=== PATIENT | male | born 1960 | race Caucasian/White ===

== ENCOUNTER 2017-10-19 02:37 | Emergency (ER) | payer MEDICARE, OTHER ==
[2017-10-19] MEDS ORDERED: Lidocaine Viscous Sol 2% 15 ml UD Cup ONE (04:07)
[2017-10-19] MEDS ORDERED: Pantoprazole 40 MG VIAL ONE (04:07)
[2017-10-19] MEDS ORDERED: Mag-Al 1200 mg/1200 mg/30 ML UDCUP ONE (04:07)
[2017-10-19 04:14] LABS: #Basophils 0.1 thou/uL (0.0-0.2); #Eosinphils 0.8 thou/uL (0.0-0.7); #Monocytes 0.8 thou/uL (0.11-0.59); #Neutrophils 5.8 thou/uL (1.40-6.50); %Basophils 0.5 % (0.0-1.0); %Eosinophils 8.1 % (0.0-10.0); %Lymphocytes 28.7 % (21.0-51.0); %Monocytes 7.3 % (0.0-10.0); %Neutrophils 55.3 % (42.0-75.0); Hemoglobin 14.8 g/dL (14.0-18.0); Mean Corpuscular HGB CONC 32.8 g/dL (32.0-36.0); Mean Corpuscular Hemoglobin 31.9 pg (27.0-31.0); Mean Corpuscular Volume 97.2 fL (78.0-98.0); Mean Platelet Volume 7.8 fL (7.4-10.4); Platelet Count 195 thou/uL (130-400); RBC Distribution Width 12.4 % (11.5-14.5); Red Blood Cell (RBC) Count 4.64 mill/uL (4.70-6.10); White Blood Cell (WBC) Count 10.4 thou/uL (4.8-10.8)
[2017-10-19 04:31] LABS: CKMB 5.6 ng/mL (0-6.6); Troponin I Less than 0.010 ng/mL (< 0.028)
[2017-10-19 04:37] LABS: ALT (SGPT) 22 U/L (8-55); AST (SGOT) 25 U/L (5-34); Albumin 4.2 g/dL (3.5-5.0); Alkaline Phosphatase 99 U/L (40-150); Anion Gap 15 mmol/L (10-20); BUN (Urea Nitrogen) 18 mg/dL (8.4-25.7); Bilirubin, Total 0.2 mg/dL (0.2-1.2); CK (CPK) 799 U/L (30-200); Calc. Creatinine Clearance 0 mL/min (70-130); Calcium 9.1 mg/dL (7.8-10.44); Carbon Dioxide 21 mmol/L (22-29); Chloride 106 mmol/L (98-107); Estimated GFR-MDRD 68; Globulin 2.3 g/dL (2.4-3.5); Glucose 97 mg/dL (70-105); Lipase 57 U/L (8-78); Potassium 3.4 mmol/L (3.5-5.1); Protein, Total 6.5 g/dL (6.0-8.3); Sodium 139 mmol/L (136-145)
--- NOTE | 2017-10-19 09:25 | RAD ---
PORTABLE CHEST 1 VIEW: DATE: 10/19/17. TIME: 4:00 a.m. HISTORY: Nausea, vomiting, dyspnea. FINDINGS: The heart size is normal. The aorta is tortuous. The lungs are expanded without focal areas of cons olidation, pneumothorax, or pleural effusions. There are old right-sided rib fractures. IMPRESSION: No radiographic evidence of acute cardiopulmonary process. POS: [facility]
--- NOTE | 2017-10-19 10:06 | RAD ---
NECK FOR SOFT TISSUES 2 VIEWS: HISTORY: Dyspnea. FINDINGS: Epiglottis appears normal. Oropharynx and prevertebral soft tissues appear normal. Visualized trach ea is normal. No soft tissue or radiopaque foreign body identified. IMPRESSION: Unremarkable neck for soft tissues. POS: [facility]
--- NOTE | 2017-10-19 10:17 | CT ---
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 PT reports gerd and it is making his throat close up and making it difficult to breath. Wif e reports similar episodes in the past. PT denies cp. HX of anxiety. 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 PT reports gerd and it is making his throat close up and making it difficult to breat h. reports similar episodes in the past. PT denies cp. HX of anxiety. TECHNIQUE: Axial computed tomography images of the neck with intravenous contrast. Coronal and sagittal reformatted images were created and reviewed. COMPARISON: No relevant prior studies available. FINDINGS: Sinuses: Mild mucosal thickening of the ethmoid sinuses. Nasopharynx: Normal. Oropharynx: There is a 0.3 cm focus of decreased attenuation adjacent to the left oropharynx possibly volume averaging, image 34 of series 2. Underlying hypoattenuated collection or lesion cannot be exc luded. Hypopharynx: Normal. Larynx: Normal. Trachea: Normal. Retropharyngeal space: Normal. Submandibular/Parotid glands: Normal. Thyroid: Normal. Bones/joints: Degenerative changes of the cervical spine. There is neuroforaminal narrowing with mode rate narrowing of bilateral C6-C7. Soft tissues: Normal. Vasculature: Normal. Lymph nodes: No lymphadenopathy. Lung apices: There are emphysematous changes at the apices. There are small foci of densities with re ticulations and apices possibly from chronic change. Neoplasm cannot be excluded. IMPRESSION: 0.3 cm focus of decreased attenuation adjacent to the left oropharynx possibly volume averaging. Underlying hypoattenuated collection or lesion cannot be excluded. Direct visualization may be helpfu l. Small foci of densities with reticulations and apices possibly from chronic change. Neoplasm cannot b e excluded. Thank you for allowing us to participate in the care of your patient. Dictated and Authenticated by: Aleta Thorne DO 10/19/2017 6:10 AM Central Time ([place] & [place]) FINAL REPORT CT NECK WITH CONTRAST: At the oropharynx, the palatine tonsillar tissue is prominent. There is a 3 mm low-density focus in the inferior region of the left palatine tonsil adjacent the mucosal surface. This is nonspecific an d was described on the preliminary report. I am in agreement with the preliminary report. POS: [facility]
[2017-10-19] MEDS ORDERED: ISOVUE-370 76%-LOCM 1 ML ONE (14:54)
== END 2017-10-19 06:30 | disposition home or self-care (01) ==
LOC: ERS 02:37
DX: K21.9 Gastro-esophageal reflux disease without esophagitis (principal); R91.8 Other nonspecific abnormal finding of lung field; E03.9 Hypothyroidism, unspecified; E78.5 Hyperlipidemia, unspecified; I10 Essential (primary) hypertension; G35 Multiple sclerosis; F17.210 Nicotine dependence, cigarettes, uncomplicated
CPT/HCPCS: 70360; 70491; 71045; 80053; 82553; 83690; 84484; 85025; 93005; 96374; C9113

== ENCOUNTER 2018-01-11 03:46 | Emergency (ER) | payer MEDICARE, OTHER ==
[2018-01-11] MEDS ORDERED: Mag-Al 1200 mg/1200 mg/30 ML UDCUP ONE (04:25)
[2018-01-11] MEDS ORDERED: Lidocaine Viscous Sol 2% 15 ml UD Cup ONE (04:25)
[2018-01-11 04:32] LABS: #Basophils 0.1 thou/uL (0.0-0.2); #Eosinphils 0.9 thou/uL (0.0-0.7); #Lymphocytes 3.1 thou/uL (1.20-3.40); #Monocytes 0.9 thou/uL (0.11-0.59); %Basophils 1.1 % (0.0-1.0); %Lymphocytes 31.3 % (21.0-51.0); %Monocytes 8.8 % (0.0-10.0); %Neutrophils 49.8 % (42.0-75.0); Hemoglobin 15.6 g/dL (14.0-18.0); Mean Corpuscular HGB CONC 32.7 g/dL (32.0-36.0); Mean Corpuscular Volume 97.7 fL (78.0-98.0); Mean Platelet Volume 7.8 fL (7.4-10.4); Platelet Count 251 thou/uL (130-400); RBC Distribution Width 12.3 % (11.5-14.5); Red Blood Cell (RBC) Count 4.88 mill/uL (4.70-6.10)
[2018-01-11 04:49] LABS: ALT (SGPT) 20 U/L (8-55); AST (SGOT) 24 U/L (5-34); Albumin 4.3 g/dL (3.5-5.0); Alkaline Phosphatase 106 U/L (40-150); Anion Gap 19 mmol/L (10-20); BUN (Urea Nitrogen) 17 mg/dL (8.4-25.7); Bilirubin, Total Less than 0.2 mg/dL (0.2-1.2); Calc. Creatinine Clearance 0 mL/min (70-130); Calcium 9.3 mg/dL (7.8-10.44); Carbon Dioxide 20 mmol/L (22-29); Chloride 106 mmol/L (98-107); Estimated GFR-MDRD 63; Globulin 2.7 g/dL (2.4-3.5); Glucose 132 mg/dL (70-105); Sodium 141 mmol/L (136-145)
[2018-01-11 04:50] LABS: CKMB 4.7 ng/mL (0-6.6); Troponin I Less than 0.010 ng/mL (< 0.028)
[2018-01-11] MEDS ORDERED: Pantoprazole 40 MG VIAL ONE (05:16)
--- NOTE | 2018-01-11 12:12 | RAD ---
PORTABLE CHEST 1 VIEW: DATE: 01/11/2018. TIME: 3:50 a.m. HISTORY: Shortness of breath. FINDINGS: Comparison is made with the exam of 10/19/2017. The heart size is normal. The lungs are expanded without focal areas of consolidation, pneumothorace s, or pleural effusions. Old right-sided rib fracture is again seen. IMPRESSION: No acute process. POS: [facility]
== END 2018-01-11 05:23 | disposition home or self-care (01) ==
LOC: ERS 03:46
DX: R10.13 Epigastric pain (principal); F41.9 Anxiety disorder, unspecified; F32.9 Major depressive disorder, single episode, unspecified; F43.10 Post-traumatic stress disorder, unspecified; I10 Essential (primary) hypertension; G35 Multiple sclerosis; F17.210 Nicotine dependence, cigarettes, uncomplicated; E78.5 Hyperlipidemia, unspecified; E03.9 Hypothyroidism, unspecified; Z79.899 Other long term (current) drug therapy; Z79.82 Long term (current) use of aspirin
CPT/HCPCS: 71045; 80053; 82553; 84484; 85025; 93005; 96374; C9113; J7620